=== PATIENT | female | born 1955 | race Caucasian/White ===

== ENCOUNTER 2021-01-01 07:40 | Day surgery (SDC) | payer BC, SELFPAY ==
[2020-12-30 10:33] VITALS: BMI 24.3
--- NOTE | 2020-12-30 11:27 | HP_ITS ---
DATE OF SERVICE: 01/01/2021 PREOPERATIVE DIAGNOSIS: Plantar fasciitis left foot. PLANNED PROCEDURE: Left foot Pearblossom plantar fasciotomy. PAST MEDICAL HISTORY: Headaches, measles, chickenpox. CURRENT MEDICATIONS: Tylenol, diclofenac SURGICAL HISTORY: Hysterectomy, veins taken out both legs in 2018. FAMILY HISTORY: Heart disease, hypertension. SOCIAL HISTORY: The patient is a nonsmoker. Denies any illicit drug use or alcohol use. She is with 3 children and works as a cook at a school kitchen. ALLERGIES: NO KNOWN DRUG ALLERGIES. HOSPITALIZATIONS: Denies. REVIEW OF SYSTEMS: Within normal limits. HISTORY OF PRESENT ILLNESS: Reveals a 65-year-old female presents with left continuous heel pain in her left proximal plantar heel that has been present for over 6 months. It has been gradually getting worse and has been unresolved. She has tried diclofenac, rest, inner soles, stretching, cortisone injections, and as well as 6 rounds of EPAT. PHYSICAL EXAMINATION: GENERAL: Reveals a pleasant, alert, well-nourished, well-developed, well-hydrated individual, who presents with normal body habitus, in no acute distress. She is oriented x3. NEUROLOGIC: Reveals intact sensorium. Pain sensation is normal. Vibratory sensation is intact. She denies any anesthesias, burning, paresthesias, or tingling bilaterally. VASCULAR: DP and PT pulses are 3/4 bilaterally. Capillary refill is immediate to all digits. Skin temperature is warm to cool, proximal to distal. DERMATOLOGIC: Reveals normal texture elasticity. There are no masses. ORTHOPEDIC: Reveals muscle strength of 5/5 in all muscle groups. Heel pain reveals pain on palpation to the plantar fascia, to the medial and central bands, intrinsic musculature, infracalcaneal bursa, and medial calcaneal tubercle of the left foot. The patient is scheduled for surgery at [facility]. The surgery was discussed in detail with the patient including risks of surgery and not having surgery, the potential surgical complications, and the usual postoperative course. No guarantees were given. Discussed potential surgical complications such as but not limited to pain; swelling; bleeding; scarring; numbness; infection; delayed or nonhealing; reoccurrence; failure of the procedure; over-correction; need for further surgery; as well as loss of toe, foot, life, or limb. We discussed the use of IV and local anesthetics. The patient indicated verbal understanding of the above mentioned conversation and all questions were answered to her satisfaction. We decided on performing a left foot Pearblossom plantar fasciotomy with Interfyl injection based on the patient's complaints, medical history, social history, and physical exam. The patient would like to proceed with surgery and anesthesia. The patient will have an appointment with her primary care physician to get preoperative medical clearance. She is made aware to stop any and all blood thinners at least 1 week prior to surgery. [employer] was checked prior to prescription of narcotic pain medications and she can fill the prescription at half fill as well as should use lowest dosage for shortest duration of time. Patient is to avoid any NSAIDs and ice to her left foot postoperatively. Can use Tylenol when not taking Percocet for pain relief. The patient will be nonweightbearing to the left foot in a surgical shoe or boot immediately postoperatively. The patient will also use crutches or knee scooter as needed. Radha Dao DPM LP/RAJANI / [id number] RAMESH
--- NOTE | 2021-01-01 08:29 | PC.NURSE ---
old bug bite noted to left anterior calf area. dry and intact. no s/sx of infection. awaiting for md burciaga to evaluate.
--- NOTE | 2021-01-01 09:03 | HO.ANESPROP2 ---
[facility] Past Medical History Medical History (Updated 12/30/20 @ 10:31 by Gauri Cabrera) COVID-19 vaccine series completed PONV (postoperative nausea and vomiting) Surgical History Surgical History (Updated 12/30/20 @ 10:32 by Gauri Cabrera) History of sacrocolpopexy History of vaginal hysterectomy History of varicose vein ligation and stripping Hx of cystoscopy Social History Social History Patient Tobacco Use Status: Never used Tobacco Use of substances other than those prescribed or required for medical reasons: No Are you DNR?: No Advance Directives: No Advance Directives Information Provided: No Advance Directives on File: No Meds Allergies Allergy/AdvReac Type Severity Reaction Status Date / Time No Known Allergies Allergy Verified 12/30/20 10:32 Home Medications Medication Instructions Recorded Confirmed Last Taken Type No Known Home Meds 12/30/20 12/30/20 Unknown History Exam Exam Date and Time: January 01, 2021 0903 Height,Weight and Vital Signs: Height 5 ft 7 in Weight 155 lb Airway Mallampati Class: II TM Dist: >3cm Neck ROM: Full Loose/Missing/Broken Teeth: No Heart: RRRNL Assessment and Plan Assessment Anesthesia Assessment: Anesthesia Plan Discussed and Chart Reviewed Final Anesthetic Review NPO: Yes ASA Class: I Final Preanesthetic Review: No Changes in Pt Med Stat, Meds/Allgs Chart Reviewed and Consent Obtained/Reviewed Patient Risk: Low Procedure Risk: Low Anesthetic Plan Anesthetic Plan: MAC: Disposition: Standard PACU
--- NOTE | 2021-01-01 09:55 | MHC.SHP ---
Pre-Procedural Eval Section A Date of Service: 01/01/21 The patient is an INPATIENT: No Changes since office visit: No Cold of Flu in the past 2 weeks, No New Medical Problems, No Changes in Medication and No Patient answered all questions The History & Physical has been completed within 30 days and I have reviewed it.: Yes Section B Chief Complaint: plantar fibromatosis Allergies: Allergies Allergy/AdvReac Type Severity Reaction Status Date / Time No Known Allergies Allergy Verified 12/30/20 10:32 Plan I have reviewed the history and physical and performed a pertinent physical examination on my patient. No changes have occurred unless specified.
[2021-01-01] MEDS: Lactated Ringers 1,000 ML 50 ML IVCONT (09:59)
--- NOTE | 2021-01-01 10:40 | P.BOP_ITS ---
Brief Operative Note Date of Service: 01/01/21 Pre-op diagnosis: Plantar fasciitis left Post-op diagnosis: same Procedure: Left topaz plantar fasciotomy with Interfyl injection Implants: None Surgeon: Radha Dao Anesthesia: MAC and local Was an Account Supervisor used for this Procedure?: Yes Account Supervisor: Baldomero Hanks Estimated blood loss (mL): 5 Tourniquet time (min): 6 Pathology: none sent Condition: stable Disposition: PACU
[2021-01-01 10:44] VITALS: BP 106/67; PULSE 73; RESP 14; TEMP 36.4; O2SAT 99
[2021-01-01 10:58] VITALS: BP 140/42; PULSE 67; RESP 16; TEMP 36.4; O2SAT 96
--- NOTE | 2021-03-12 14:11 | OP_ITS ---
SURGEON: Radha Dao DPM PREOPERATIVE DIAGNOSIS: Plantar fasciitis, left foot. POSTOPERATIVE DIAGNOSIS: Plantar fasciitis, left foot. PROCEDURE PERFORMED: Left foot Wainscott plantar fasciotomy with Interfyl injection. ESTIMATED BLOOD LOSS: Less than 2 mL. COMPLICATIONS: None. ANESTHESIA: Monitored anesthetic care with local consisting preoperatively of 18 mL of 0.5% Marcaine plain and 2% lidocaine plain. ASSISTANTS: Baldomero Hanks DPM SPECIMENS: None HEMOSTASIS: Pneumatic ankle tourniquet set at 225 mmHg for 6 minutes. INDICATIONS FOR SURGERY: Patient had a painful left heel, has been diagnosed with plantar fasciitis and tried multiple conservative therapies without relief of symptoms. The above-mentioned surgery was discussed in detail with the patient including risks, benefits, and possible complications. No guarantees were given. Written and oral informed consent were obtained. PROCEDURE IN DETAIL: Patient was brought to the operating room, placed on the table in the supine position. Following IV sedation, the above-mentioned local anesthetic was injected about the left foot in a regional field block fashion. The left foot was scrubbed, prepped, and draped in a sterile manner. Prior to the start of anesthesia, the patient was given 2 g of cefazolin as a prophylactic antibiotic. The foot was exsanguinated and the pneumatic ankle tourniquet was inflated. Attention was directed to the left plantar heel where prior to the patient being placed under anesthesia, the points of maximal tenderness were palpated and marked. The left foot was then marked in a grid-shaped fashion approximately half a centimeter apart; and using a 0.062 K-wire, the foot was stabbed with the K-wire in a grid shaped fashion. The Wainscott wand was then introduced to each percutaneous hole and the plantar fascia was ablated. Areas of maximal tenderness were ablated more than once. The foot was then wiped clean. Steri-Strips were placed over the fashion grid. 0.6 mL of injectable Interfyl was then reconstituted with 1 mL of Marcaine and was injected about the left foot. The left foot was then dressed with Betadine-soaked gauze, 4x4s, fluffs, Kerlix, cast padding, and an Khalif bandage. The patient tolerated procedure and anesthesia well. Pneumatic ankle tourniquet was deflated. Prompt capillary refill was noted to all 5 digits. The patient was transferred to the recovery room with vital signs stable and vascular status at preoperative levels. Following a period of postoperative recovery, the patient will be discharged home with written and oral postoperative instructions, and the patient will follow up in my office for all postoperative followup care. The patient will avoid any anti-inflammatories or NSAIDs or use of ice postoperatively. She will elevate and use Percocet or Tylenol as needed for pain relief. Radha Dao DPM LP/RAJANI / [id number] MTDDi
== END 2021-01-01 11:45 | disposition home or self-care (01) ==
PROVIDERS: PCP Internal Medicine; Visit Provider Podiatrist
PROC: (CPT 28008; principal; 2021-01-01 09:30)
DX: M72.2 Plantar fascial fibromatosis (principal)
CPT/HCPCS: 28008; 20550; J0690; J1100; J2250; J3010; Q4171